=== PATIENT | male | born 1975 | race Caucasian/White ===

== ENCOUNTER 2016-06-11 17:20 | Emergency (ER) | payer MEDICARE, MEDICAID ==
[2016-06-11 18:05] VITALS: BP 139/95
[2016-06-11] MEDS ORDERED: LORazepam 2 MG/ML MDV IVPUSH ONE ×2 (18:43→19:55)
[2016-06-11] MEDS ORDERED: Sodium Chloride 0.9% 10 ML Syringe FLUSH PRN (18:43)
[2016-06-11] MEDS ORDERED: Sodium Chloride 0.9% 1,000 ML IV SCH (18:45)
--- NOTE | 2016-06-11 20:33 | EDM.PDOC ---
ED HPI GENERAL MEDICAL PROBLEM - General Chief Complaint: Drug or Alcohol Abuse Stated Complaint: ILLNESS Time Seen by Provider: 06/11/16 18:27 Source of Information: Reports: Patient, Other History Limitations: Reports: No limitations - History of Present Illness INITIAL COMMENTS - FREE TEXT/NARRATIVE: Patient was sent to the emergency room for evaluation of hallucinations while at [facility] The patient denies any pain, shortness of breath or discomforts. He is anxious and wants medication to relax Onset: gradual Onset Date: 06/11/16 Duration: Hour(s):, Intermittent, Improving Location: Reports: generalized Quality: Reports: Other Severity: mild Improves with: Reports: Rest Worsens with: Reports: None Context: Reports: Other (Alcohol withdrawal) Associated Symptoms: Reports: headaches, malaise, weakness Treatments [employer]IDENT [employer]LE[employer] ACQUISTION: Reports: Other medication(s) - Related Data Allergies Allergy/AdvReac Type Severity Reaction Status Date / Time ceftriaxone [From Rocephin] Allergy Abdominal Verified 06/11/16 18:05 Pain morphine Allergy Hives Verified 06/11/16 18:05 lithium AdvReac Delusions Verified 06/11/16 18:05 Home Meds: Home Meds Pantoprazole [Protonix] 40 mg PO DAILY 12/29/15 [History] Zolpidem Tartrate [Ambien] 12.5 mg PO BEDTIME 12/29/15 [History] Past Medical History Cardiovascular History: Reports: Heart murmur Gastrointestinal History: Reports: GERD Musculoskeletal History: Reports: Fracture Psychiatric History: Reports: Addiction, Anxiety, OCD, Psych Hospitalization(s) , Suicide attempt, Other (see below) Other Psychiatric History: borderline personality disorder - Infectious Disease History Infectious Disease History: Reports: Chicken pox - Past Surgical History Musculoskeletal Surgical History: Reports: Hip replacement Social & Family History - Tobacco Use Smoking Status *Q: Heavy Tobacco Smoker Years of Tobacco use: 10 Packs/Tins Daily: 2 Used Tobacco, but Quit: No - Caffeine Use Caffeine Use: Reports: Coffee - Alcohol Use Days Per Week of Alcohol Use: 7 Number of Drinks Per Day: 10 Total Drinks Per Week: 70 - Recreational Drug Use Recreational Drug Use: Yes Recreational Drug Type: Reports: Methamphetamine Recreational Drug Use Frequency: Monthly ED ROS GENERAL - Review of Systems Review Of Systems: See Below Constitutional: Reports: malaise, weakness, fatigue, decreased appetite HEENT: Reports: No symptoms Respiratory: Reports: No Symptoms Cardiovascular: Reports: No symptoms Endocrine: Reports: fatigue GI/Abdominal: Reports: No symptoms : Reports: no symptoms Musculoskeletal: Reports: back pain, muscle pain, muscle stiffness Skin: Reports: no symptoms Neurological: Reports: Confusion, Dizziness Psychiatric: Reports: Anxiety, Hallucinations Hematologic/Lymphatic: Reports: no symptoms Immunologic: Reports: no symptoms ED EXAM, GENERAL - Physical Exam Exam: See Below Exam Limited By: No limitations General Appearance: alert, WD/WN, no apparent distress, anxious Eye Exam: bilateral eye: normal inspection Ears: normal external exam, hearing grossly normal Nose: normal inspection Throat/Mouth: Normal inspection, Normal lips, Normal voice Head: atraumatic, normocephalic Neck: normal inspection, supple, non-tender Respiratory/Chest: no respiratory distress, lungs clear Cardiovascular: normal peripheral pulses, regular rate, rhythm GI/Abdominal: normal bowel sounds, soft, non tender, no organomegaly Back Exam: normal inspection, full range of motion Extremities: normal inspection, normal range of motion Neurological: alert, oriented, normal cognition Psychiatric: anxious Skin Exam: Warm, Dry, Intact, Normal color Course - Vital Signs Last Recorded V/S: Last Vital Signs Temp 99.0 F 06/11/16 18:02 Pulse 85 06/11/16 18:02 Resp 16 06/11/16 18:02 BP 139/95 H 06/11/16 18:02 Pulse Ox 97 06/11/16 18:02 - Orders/Labs/Meds Labs: Laboratory Tests 06/11/16 06/11/16 06/11/16 Range/Units 18:42 18:42 19:27 WBC 6.2 (4.5-11.0) K/uL RBC 4.57 (4.30-5.90) M/uL Hgb 14.4 (12.0-15.0) g/dL Hct 43.0 (40.0-54.0) % MCV 94 (80-98) fL MCH 32 H (27-31) pg MCHC 34 (32-36) % Plt Count 187 (150-400) K/uL Neut % (Auto) 59 (36-66) % Lymph % (Auto) 29 (24-44) % Gar[place] % (Auto) 6 (2-6) % Eos % (Auto) 5 H (2-4) % Baso % (Auto) 1 (0-1) % Sodium 142 (140-148) mmol/L Potassium 3.9 (3.6-5.2) mmol/L Chloride 104 (100-108) mmol/L Carbon Dioxide 27 (21-32) mmol/L Anion Gap 11.5 (5.0-14.0) mmol/L BUN 14 (7-18) mg/dL Creatinine 0.8 (0.8-1.3) mg/dL Est Cr Clr Drug Dosing 116.38 mL/min Estimated GFR (MDRD) > 60 (>60) Glucose 99 (74-106) mg/dL Calcium 8.7 (8.5-10.1) mg/dL Total Bilirubin 0.3 (0.2-1.0) mg/dL AST 55 H (15-37) U/L ALT 76 (12-78) U/L Alkaline Phosphatase 90 (46-116) U/L Total Protein 7.3 (6.4-8.2) g/dL Albumin 3.1 L (3.4-5.0) g/dL Globulin 4.2 H (2.3-3.5) g/dL Albumin/Globulin Ratio 0.7 L (1.2-2.2) Urine Color Yellow Urine Appearance Clear Urine pH 7.0 (4.5-8.0) Ur Specific [place] 1.010 (1.008-1.030) Urine Protein Negative (NEGATIVE) mg/dL Urine Glucose (UA) Normal (NEGATIVE) mg/dL Urine Ketones Negative (NEGATIVE) mg/dL Urine Occult Blood Negative (NEGATIVE) Urine Nitrite Negative (NEGAITVE) Urine Bilirubin Negative (NEGATIVE) Urine Urobilinogen Normal (NORMAL) mg/dL Ur Leukocyte Esterase Negative (NEGATIVE) Urine RBC 0-5 (0-5) Urine WBC 0-5 (0-5) Ur Epithelial Cells Not seen Amorphous Sediment Not seen Urine Bacteria Not seen Urine Mucus Not seen Meds: Medications Discontinued Medications Generic Name Dose Route Start Last Admin Trade Name Freq PRN Reason Stop Dose Admin Sodium Chloride 1,000 mls @ 999 mls/hr 06/11/16 18:45 06/11/16 19:24 Normal Saline IV 999 mls/hr .BOLUS CANDE Administration Lorazepam 1 mg 06/11/16 18:43 06/11/16 19:23 Ativan IVPUSH 06/11/16 18:44 1 mg ONETIME ONE Administration Lorazepam 1 mg 06/11/16 19:55 06/11/16 20:02 Ativan IVPUSH 06/11/16 19:56 1 mg ONETIME ONE Administration Sodium Chloride 10 ml 06/11/16 18:43 06/11/16 19:27 Saline Flush FLUSH 10 ml ASDIRECTED PRN Administration Keep Vein Open Departure - Departure Time of Disposition: 20:30 Disposition: DC/Tfer to Other 70 Condition: fair Clinical Impression: Alcohol abuse, Alcohol withdrawal syndrome Instructions: Alcohol Use Disorder Referrals: PCP,None [Primary Care Provider] - Forms: ED Department Discharge Additional Instructions: Patient seen in ED there was reports of hallucination, but the patient is alert and orientated He is given IV fluid and IV ativan. Reviewed case with Dr. Meng. transfer back to [facility]. - Problem List & Annotations (1) Alcohol abuse SNOMED Code(s): 72834244 Code(s): F10.10 - ALCOHOL ABUSE, UNCOMPLICATED Status: Acute Priority: Medium (2) Alcohol withdrawal syndrome SNOMED Code(s): 586245265 Code(s): F10.239 - ALCOHOL DEPENDENCE WITH WITHDRAWAL, UNSPECIFIED Status: Acute Priority: Medium - Problem List Review Problem List Initiated/Reviewed/Updated: Yes
== END 2016-06-11 20:40 | disposition other institution (70) ==
LOC: JP.ED 17:20
DX: F10.10 Alcohol abuse, uncomplicated (principal); F10.239 Alcohol dependence with withdrawal, unspecified
CPT/HCPCS: 36415; 80053; 81001; 85025; 96361; 96374; 96376; 99285; J2060; J7040; J7050; 99284

== ENCOUNTER 2016-12-11 10:13 | Emergency (ER) | payer MEDICAID, MEDICARE ==
[2016-12-11 10:30] VITALS: BP 161/109
--- NOTE | 2016-12-11 11:36 | EDM.PDOCBH ---
ED HPI GENERAL MEDICAL PROBLEM - General Chief Complaint: Drug or Alcohol Abuse Stated Complaint: [facility] FROM [facility] Time Seen by Provider: 12/11/16 11:20 Source of Information: Reports: Patient, Provider History Limitations: Reports: No Limitations - History of Present Illness INITIAL COMMENTS - FREE TEXT/NARRATIVE: 41-year-old male with chronic alcohol abuse has been at our local detox center 3 times over the past year, all 3 times has been transported to the emergency room within the first 48 hours because of psychiatric issues. He is "suicidal". He apparently has a rule 25 established through [facility] and wants to be admitted to a dual diagnosis facility. He was transported to [place] 2 days ago after being seen as a patient intoxicated in the emergency room in [facility]. He does have a history of drug overdose which was intentional, and intends to jump in front of a moving vehicle or jump off of a building if he is discharged. Onset: Unknown/Unsure Associated Symptoms: Reports: Other (Patient is anxious). Denies: Confusion, Chest Pain, Cough, Shortness of Breath Treatments MECHANICAL STRIPER: Reports: Other Medication(s), Other (see below) (He has received Ativan and clonidine this morning at the detox center prior to coming in) Other Treatments MECHANICAL STRIPER: See [place] transfer form - Related Data Allergies Allergy/AdvReac Type Severity Reaction Status Date / Time ceftriaxone [From Rocephin] Allergy Abdominal Verified 06/11/16 18:05 Pain morphine Allergy Hives Verified 06/11/16 18:05 lithium AdvReac Delusions Verified 06/11/16 18:05 Home Meds: Home Meds Pantoprazole [Protonix] 40 mg PO DAILY 12/29/15 [History] Zolpidem Tartrate [Ambien] 12.5 mg PO BEDTIME 12/29/15 [History] Past Medical History Cardiovascular History: Reports: Heart Murmur Gastrointestinal History: Reports: GERD Musculoskeletal History: Reports: Fracture Neurological History: Reports: Seizure Psychiatric History: Reports: ADHD, Addiction, Anxiety, OCD, Psych Hospitalization(s), Suicide Attempt, Other (See Below) Other Psychiatric History: Kamryn Hdez and a few others. - Infectious Disease History Infectious Disease History: Reports: Chicken Pox - Past Surgical History Musculoskeletal Surgical History: Reports: Hip Replacement, Other (See Below) Other Musculoskeletal Surgeries/Procedures:: Decompression Social & Family History - Family History Family Medical History: Unobtainable - Tobacco Use Smoking Status *Q: Current Every Day Smoker Years of Tobacco use: 25 Packs/Tins Daily: 1 Used Tobacco, but Quit: No - Caffeine Use Caffeine Use: Reports: None - Alcohol Use Days Per Week of Alcohol Use: 7 Number of Drinks Per Day: 4 Total Drinks Per Week: 28 - Recreational Drug Use Recreational Drug Use: Yes Drug Use in Last 12 Months: Yes Recreational Drug Type: Reports: Methamphetamine, Other (see below) Other Recreational Drug Type: Meth about once a year. Recreational Drug Use Frequency: Not Used In Over 1 Year ED ROS GENERAL - Review of Systems Review Of Systems: See Below Constitutional: Denies: Fever, Chills Respiratory: Denies: Shortness of Breath, Cough Cardiovascular: Denies: Chest Pain GI/Abdominal: Denies: Abdominal Pain, Nausea, Vomiting : Reports: No Symptoms ED EXAM, BEHAVIORAL HEALTH - Physical Exam Exam: See Below Exam Limited By: No Limitations General Appearance: Alert, No Apparent Distress Eye Exam: Right Eye: Other (Small amount of ecchymosis under the right eye) Throat/Mouth: Normal Inspection Respiratory/Chest: No Respiratory Distress, Lungs Clear Cardiovascular: Regular Rate, Rhythm GI/Abdominal: Non-Tender Extremities: Normal Inspection Neurological: Alert, Normal Mood/Affect Psychiatric: Alert, Normal Affect, Normal Mood Skin Exam: Warm, Dry, Other (Small bruise under the right eye) COURSE, BEHAVIORAL HEALTH COMP - Course Vital Signs: Last Vital Signs Temp 96.6 F 12/11/16 11:04 Pulse 82 12/11/16 11:04 Resp 20 12/11/16 11:04 BP 161/109 H 12/11/16 11:04 Pulse Ox 98 12/11/16 11:04 Orders, Labs, Meds: Laboratory Tests 12/11/16 12/11/16 12/11/16 Range/Units 11:41 11:47 11:47 WBC 4.3 L (4.5-11.0) K/uL RBC 4.24 L (4.30-5.90) M/uL Hgb 12.8 (12.0-15.0) g/dL Hct 38.9 L (40.0-54.0) % MCV 92 (80-98) fL MCH 30 (27-31) pg MCHC 33 (32-36) % Plt Count 187 (150-400) K/uL Neut % (Auto) 48 (36-66) % Lymph % (Auto) 34 (24-44) % [place] % (Auto) 11 H (2-6) % Eos % (Auto) 6 H (2-4) % Baso % (Auto) 1 (0-1) % Sodium 138 L (140-148) mmol/L Potassium 4.4 (3.6-5.2) mmol/L Chloride 105 (100-108) mmol/L Carbon Dioxide 28 (21-32) mmol/L Anion Gap 9.4 (5.0-14.0) mmol/L BUN 11 (7-18) mg/dL Creatinine 0.8 (0.8-1.3) mg/dL Est Cr Clr Drug Dosing 116.38 mL/min Estimated GFR (MDRD) > 60 (>60) Glucose 167 H (74-106) mg/dL Calcium 8.6 (8.5-10.1) mg/dL Total Bilirubin 0.2 (0.2-1.0) mg/dL AST 107 H D (15-37) U/L ALT 92 H (12-78) U/L Alkaline Phosphatase 77 (46-116) U/L Total Protein 7.2 (6.4-8.2) g/dL Albumin 3.0 L (3.4-5.0) g/dL Globulin 4.2 H (2.3-3.5) g/dL Albumin/Globulin Ratio 0.7 L (1.2-2.2) Urine Opiates Screen Negative (NEGATIVE) Ur Oxycodone Screen Negative (NEGATIVE) Urine Methadone Screen Negative (NEGATIVE) Ur Propoxyphene Screen Negative (NEGATIVE) Ur Barbiturates Screen Positive H (NEGATIVE) Ur Tricyclics Screen Negative (NEGATIVE) Ur Phencyclidine Scrn Negative (NEGATIVE) Ur Amphetamine Screen Negative (NEGATIVE) U Methamphetamines Scrn Negative (NEGATIVE) Urine MDMA Screen Negative (NEGATIVE) U Benzodiazepines Scrn Positive H (NEGATIVE) U Cocaine Metab Screen Negative (NEGATIVE) U Marijuana (THC) Screen Negative (NEGATIVE) Ethyl Alcohol mg/dL 12/11/16 Range/Units 11:47 WBC (4.5-11.0) K/uL RBC (4.30-5.90) M/uL Hgb (12.0-15.0) g/dL Hct (40.0-54.0) % MCV (80-98) fL MCH (27-31) pg MCHC (32-36) % Plt Count (150-400) K/uL Neut % (Auto) (36-66) % Lymph % (Auto) (24-44) % [place] % (Auto) (2-6) % Eos % (Auto) (2-4) % Baso % (Auto) (0-1) % Sodium (140-148) mmol/L Potassium (3.6-5.2) mmol/L Chloride (100-108) mmol/L Carbon Dioxide (21-32) mmol/L Anion Gap (5.0-14.0) mmol/L BUN (7-18) mg/dL Creatinine (0.8-1.3) mg/dL Est Cr Clr Drug Dosing mL/min Estimated GFR (MDRD) (>60) Glucose (74-106) mg/dL Calcium (8.5-10.1) mg/dL Total Bilirubin (0.2-1.0) mg/dL AST (15-37) U/L ALT (12-78) U/L Alkaline Phosphatase (46-116) U/L Total Protein (6.4-8.2) g/dL Albumin (3.4-5.0) g/dL Globulin (2.3-3.5) g/dL Albumin/Globulin Ratio (1.2-2.2) Urine Opiates Screen (NEGATIVE) Ur Oxycodone Screen (NEGATIVE) Urine Methadone Screen (NEGATIVE) Ur Propoxyphene Screen (NEGATIVE) Ur Barbiturates Screen (NEGATIVE) Ur Tricyclics Screen (NEGATIVE) Ur Phencyclidine Scrn (NEGATIVE) Ur Amphetamine Screen (NEGATIVE) U Methamphetamines Scrn (NEGATIVE) Urine MDMA Screen (NEGATIVE) U Benzodiazepines Scrn (NEGATIVE) U Cocaine Metab Screen (NEGATIVE) U Marijuana (THC) Screen (NEGATIVE) Ethyl Alcohol < 3 mg/dL Re-Assessment/Re-Exam: Phone consultations were done with several of his past caseworkers. They have worked hard getting this patient into a rule 25 detox and treatment program but each time he's been admitted he leaves because he doesn't like the food or some other reason. They are finally closing his case and told him he has an active rule 25 but he has to find his own treatment center. This was relayed to the patient and I think he knew this but wasn't offering the information. At that time he denied being self-injurious or suicidal and admitted he wanted to leave [place]. I told them that if he truly wasn't self injurious I could get him readmitted to [place] and he can get the treatment he needed. He just wanted to leave. Further discussion with his classification case manager confirms this is a chronic pattern of behavior for this patient, he travels randomly to detox centers, gets rapid discharge and then finds free housing. Departure - Departure Time of Disposition: 12:36 Disposition: Home, Self-Care 01 Condition: Good Clinical Impression: History of ETOH abuse - Discharge Information Instructions: Chemical Dependency Referrals: PCP,None [Primary Care Provider] - Forms: ED Department Discharge Care Plan Goals: According to your previous classification case manager it is up to you to find a treatment center to fullfill your Rule 25 and finish your chemical dependency treatment. If you change your mind and want to go back into treatment or detox please return and we will get you admitted.. Your rule 25 child welfare caseworker is Lauren. If you find a treatment center to your liking have them contact her at [phone].
== END 2016-12-11 12:36 | disposition home or self-care (01) ==
LOC: JP.ED 10:13
DX: F32.9 Major depressive disorder, single episode, unspecified (principal); R45.851 Suicidal ideations; F10.129 Alcohol abuse with intoxication, unspecified; K21.9 Gastro-esophageal reflux disease without esophagitis; Z88.5 Allergy status to narcotic agent; Z88.8 Allergy status to other drugs, medicaments and biological substances; Z79.899 Other long term (current) drug therapy; F17.210 Nicotine dependence, cigarettes, uncomplicated; Y90.0 Blood alcohol level of less than 20 mg/100 ml; Z96.649 Presence of unspecified artificial hip joint
CPT/HCPCS: 36415; 80053; 80305; 85025; 99283; 99284; G0480